=== PATIENT | female | born 1960 | race Caucasian/White ===

== ENCOUNTER 2021-06-23 16:57 | Inpatient (IN) ==
[2021-06-23] MEDS ORDERED: ACETAMINOPHEN 325 MG TAB PO PRN (18:53)
[2021-06-23] MEDS ORDERED: POLYETHYLENE (MIRALAX) 17 GM PACK PO PRN (18:53)
[2021-06-23] MEDS ORDERED: Heparin IV Adult Wt-Based Standard *NO* Bolus Protocol IV SCH (18:58)
[2021-06-23] MEDS ORDERED: HEPARIN SODIUM/DEXTROSE 25,000 UNITS/500 ML BAG IV SCH ×3 (19:15→21:30)
[2021-06-23] MEDS ORDERED: GLUCOSE 40% GEL 15 GM TUBE PO PRN (20:30)
[2021-06-23] MEDS ORDERED: DEXTROSE 50% 50 ML SYRINGE IV PRN (20:30)
[2021-06-23] MEDS ORDERED: GLUCAGON FOR INJ 1 MG VIAL IM PRN (20:30)
[2021-06-23] MEDS ORDERED: GLUCOSE 10 TABS/TUBE PO PRN (20:30)
[2021-06-23] MEDS ORDERED: CARBOHYDRATES FOR HYPOGLYCEMIA PO PRN (20:30)
[2021-06-23 20:40] LABS: Partial Thromboplastin Ratio 2.4; Prothrombin Time 9.8 Seconds (9.0-12.0)
[2021-06-23 20:41] LABS: Partial Thromboplastin Time 61.9 Seconds (21.0-31.0)
[2021-06-23] MEDS ORDERED: INSULIN ASPART 100 UNITS/ML 3 ML PEN SC SCH (21:00)
[2021-06-23] MEDS ORDERED: Heparin IV Adult Wt-Based Standard *NO* Bolus Protocol ONE (21:07)
--- NOTE | 2021-06-23 22:28 | History and Physical Report ---
DATE OF ADMISSION: 06/23/2021. CHIEF COMPLAINT: Non-ST elevated [place]. HISTORY OF PRESENT ILLNESS: This is a 60-year-old female with past medical history significant for type 2 diabetes, hyperlipidemia, obesity, vitamin B12 deficiency, steatosis of liver, chronic right shoulder pain, degenerative disk disease, tobacco abuse, history of lumbar spinal fusion surgery, who was transferred from [place] for cardiac cath because of non-ST elevated [place]. 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 Last Thursday, when she woke up in the evening around 7:00 p.m. and she was talking on the phone to the son around 8:00 p.m., she noticed left- sided chest pain radiating to her left shoulder and arm. It was not getting better when her son told her to go to the ER and she was in [facility] and got admitted for non-ST elevated [place]. Her EKG showed ST depression in the inferolateral leads. Her high-sensitivity troponin at presentation was 48 and peaked at 85. She was started on IV heparin, aspirin and metoprolol, and initially, she was placed on nitroglycerin paste. Currently, she is not on any nitroglycerin paste. She says yesterday she had couple of episodes of chest pain, but since today she is having no chest pain. She was somewhat nauseous earlier, but she has no nausea now. When she had chest pain, she had sweating and today she had some sweating, but no chest pain. Currently, resting comfortably and hemodynamically stable. Denies any shortness of breath. She has smoker's cough once in a while. She had a headache earlier that is gone now. No blurred visions, no earache, no runny nose, no sore throat, no nausea. Appetite is okay, no dysphagia, no abdominal pain, normal bowel and bladder movements. Denies any blood in stools or black stools. Denies any hematuria. The patient has diabetes, but she says she could not tolerate metformin in the past and she was on Prandin, but she stopped it 4 years ago because it was causing hypoglycemic episodes. She was on statin; she cannot remember exactly, it could be Lipitor or pravastatin, but it caused very bad leg cramps and she declined statins in the past and now she agrees to try to take Lipitor low dose for 3 times a week. Before all this happened, she was active. ALLERGIES: No known drug allergies. PAST MEDICAL HISTORY: As mentioned above. PAST SURGICAL HISTORY: Breast lesion excision, , endometrial thermal ablation, ligation of oviducts, removal of bilateral heel spur, removal of pilonidal cyst, bursa removal of the right thigh. MEDICATIONS: Currently, she is on heparin, aspirin, metoprolol, Lipitor. FAMILY HISTORY: Significant for uncle had [place], maternal grandfather had [place]. Sister has breast cancer. SOCIAL HISTORY: . Smokes 1 pack a day for the last 38 years. Alcohol occasional. No drug use. REVIEW OF SYSTEMS: As per HPI. Rest of review of systems is negative. PHYSICAL EXAMINATION: GENERAL: The patient is obese, not in acute distress. VITAL SIGNS: Temperature 37, pulse 75, respiratory rate 18, blood pressure 157/94, oxygen 97% on room air. HEENT: Extraocular muscles intact. No pallor. No icterus. NECK: No JVD, no neck masses. CARDIOVASCULAR: S1 and S2 heard. Regular rate and rhythm. No murmur, no gallop. RESPIRATORY SYSTEM: Normal AP diameter. No accessory muscle use. No wheezing, no crackles. ABDOMEN: Soft, bowel sounds present, nontender, no distention. CENTRAL NERVOUS SYSTEM: Cranial nerves II-XII grossly intact, nonfocal. EXTREMITIES: No edema, no erythema. LABORATORY DATA: Labs done today at [place] are lipid profile, triglycerides 75, cholesterol 184, HDL 34, LDL 135, non-HDL cholesterol 150. Sodium is 142, potassium 4.3, chloride 108, bicarbonate 26, BUN 11, creatinine 0.7, serum glucose 119, calcium 9. WBC 9.6, hemoglobin 14.7, hematocrit 46.8, platelets 305. ASSESSMENT AND PLAN: This is a 60-year-old female who was transferred from [facility] for cardiac catheterization for non-ST elevated myocardial infarction. 1. Non-ST elevated myocardial infarction: The patient presented to [facility] on Thursday with chest pain and found to have EKG changes, ST depression in the inferolateral leads and high-sensitivity troponin of 45 and peaked at 85. Started on heparin, aspirin, beta ras and transferred here for cardiac catheterization in a.m. Currently resting comfortably, currently asymptomatic. We will follow repeat EKG. We will follow repeat troponins and keep her n.p.o. after midnight. We will hold heparin at 7:00 a.m. and plan for cardiac catheterization in a.m. Cardiology consult. Continue her aspirin, beta ras and low-dose statin. 2. History of diabetes: Stopped Prandin about 4 years ago because it was causing hypoglycemic episodes. Recent Hb1Ac seemed to be 7; we will follow repeat Hb1Ac, place her on insulin sliding scale, follow the blood sugars. 3. Hyperlipidemia: Continue low-dose statin; hopefully, the patient tolerates it. 4. Hypertension: Started on metoprolol. We will monitor the blood pressure. 5. History of vitamin B12 deficiency: We will check laboratories. 6. Tobacco abuse: Needs counseling. She says she is going to quit smoking. 7. Obesity: Needs counseling. 8. Deep venous thrombosis prophylaxis: On IV heparin. DISPOSITION: Monitor in the tele floor. PT, OT prior to discharge. Social service to help with discharge planning. Job ID: [id number] KIKO
[2021-06-23] MEDS ORDERED: Nursing to Pharmacy Communication SCH (23:15)
[2021-06-24] MEDS: INSULIN ASPART 100 UNITS/ML 3 ML PEN SC SCH ×5 (00:12→20:57)
[2021-06-24 03:51] LABS: Partial Thromboplastin Time 53.3 Seconds (21.0-31.0)
[2021-06-24 05:36] LABS: Basophils # (auto) 0.04 K/uL (0-0.2); Basophils % (auto) 0.4 %; Eosinophils # (auto) 0.42 K/uL (0-0.5); Hematocrit (blood only) 45.3 % (37-47); Immature Granulocytes # (auto) 0.07 K/uL (0.00-0.02); Immature Granulocytes % (auto) 0.7 %; Lymphocytes # (auto) 3.37 K/uL (1.2-3.4); Lymphocytes % (auto) 32.2 %; Mean Corpuscular Hemoglobin 29.6 pg (25-34); Mean Corpuscular Hgb Conc 33.1 g/dL (32-36); Mean Corpuscular Volume 89.3 fL (80-100); Mean Platelet Volume 9.8 fL (7.4-10.4); Monocytes # (auto) 0.67 K/uL (0.11-0.59); Monocytes % (auto) 6.4 %; Neutrophils # (auto) 5.88 K/uL (1.4-6.5); Neutrophils % (auto) 56.3 %; Platelet Count 268 K/uL (130-400); RDW Coefficient of Variation 14.6 % (11.5-14.5); RDW Standard Deviation 47.9 fL (36.4-46.3); Red Blood Count 5.07 M/uL (4.2-5.4); White Blood Count 10.45 K/uL (4.8-10.8)
[2021-06-24 06:07] LABS: BUN Creatinine Ratio 22.1 (10-20); Calcium 8.9 mg/dl (8.5-10.1); Creatinine Clr Calc Pharmacy 82.4 ml/min; Est GFR (African American) 106.2 ml/min; Est GFR (Non-African American) 91.7 ml/min; Magnesium 2.2 mg/dl (1.8-2.4)
[2021-06-24 06:27] LABS: Troponin I 0.124 ng/ml (0-0.045)
[2021-06-24] MEDS ORDERED: STOP HEPARIN DRIP ORDER ONE (07:00)
[2021-06-24] MEDS ORDERED: HEPARIN SODIUM/DEXTROSE 25,000 UNITS/500 ML BAG IV SCH (07:00)
--- NOTE | 2021-06-24 07:28 | Hospitalist Progress Note ---
Date of Service June 24, 2021 Assessment & Plan (1) NSTEMI (non-ST elevated myocardial infarction): (2) Hyperlipidemia: (3) Diabetes mellitus type 2 in nonobese: Plan: This is a 60-year-old female who was transferred from [facility] for cardiac catheterization for non-ST elevated myocardial infarction. 1. Non-ST elevated myocardial infarction: The patient presented to [facility] on Thursday with chest pain and found to have EKG changes, ST depression in the inferolateral leads and high- sensitivity troponin of 45 and peaked at 85. Started on heparin, aspirin, beta ras and transferred here for cardiac catheterization in a.m. Currently resting comfortably, currently asymptomatic. We will follow repeat EKG. We will follow repeat troponins and keep her n.p.o. after midnight. Stopped IV heparin at 7:00 a.m. today. Plan for cardiac catheterization later today. Cardiology consulted. Continue her aspirin, beta ras and low-dose statin. 2. History of diabetes: Stopped Prandin about 4 years ago because it was causing hypoglycemic episodes. Recent Hb1Ac seemed to be 7; we will follow repeat Hb1Ac, place her on insulin sliding scale, follow the blood sugars. 3. Hyperlipidemia: Continue low-dose statin; hopefully, the patient tolerates it. 4. Hypertension: Started on metoprolol. We will monitor the blood pressure. 5. History of vitamin B12 deficiency: We will check laboratories. 6. Tobacco abuse: Needs counseling. She says she is going to quit smoking. 7. Obesity: Needs counseling. DVT prophylaxis: On IV heparin.(stopped this AM) DISPOSITION: Plan to discharge home once medically stable. Admission and Anticipated Discharge Date Admission Date: June 23, 2021 Subjective Patient seen in follow-up of NSTEMI She was transferred from [facility] for need of cardiac cath she is currently sitting up in the bed, in no acute distress, conversing easily, pleasant in no acute distress Currently denies any chest pain or shortness of breath Denies any dizziness or lightheadedness Review of Systems Constitutional: no fever and no chills Respiratory: no cough and no dyspnea Cardiovascular: no chest pain and no palpitations Gastrointestinal: no abdominal pain, no nausea and no vomiting Physical Exam Physical Exam: GENERAL: obese F, not in acute distress. HEENT: NC/AT, Extraocular muscles intact. No pallor. No icterus. NECK: No JVD, no neck masses. CARDIOVASCULAR: S1 and S2 heard. Regular rate and rhythm. No murmur, no gallop. RESPIRATORY: Normal AP diameter. No accessory muscle use. No wheezing, no crackles. ABDOMEN: Soft, bowel sounds present, nontender, no distention. NEURO: Alert oriented x3, no facial asymmetry, speech fluent, moves extremities EXTREMITIES: No edema, no erythema. Results & Data Results & Data ([facility]) Vital Signs (Past 12 Hours) Vital Signs Temp Pulse Resp BP Pulse Ox 06/24/21 03:25 36.8 C 67 18 141/83 H 95 06/23/21 23:19 36.9 C 67 18 154/76 H 95 Laboratory Results 06/24/21 06/24/21 06/24/21 Range/Units 05:53 05:21 05:21 WBC (4.8-10.8) K/uL RBC (4.2-5.4) M/uL Hgb (12.0-16.0) g/dL Hct (37-47) % MCV (80-100) fL MCH (25-34) pg MCHC (32-36) g/dL RDW Std Deviation (36.4-46.3) fL RDW Coeff of Allan (11.5-14.5) % Plt Count (130-400) K/uL MPV (7.4-10.4) fL Immature Gran % (Auto) % Neut % (Auto) % Lymph % (Auto) % [place] % (Auto) % Eos % (Auto) % Baso % (Auto) % Neut # (Auto) (1.4-6.5) K/uL Lymph # (Auto) (1.2-3.4) K/uL [place] # (Auto) (0.11-0.59) K/uL Eos # (Auto) (0-0.5) K/uL Baso # (Auto) (0-0.2) K/uL Immature Gran # (Auto) (0.00-0.02) K/uL PT (9.0-12.0) Seconds INR (0.9-1.1) APTT (21.0-31.0) Seconds PTT Ratio Sodium (136-145) mmol/L Potassium (3.5-5.1) mmol/L Chloride (98-107) mmol/L Carbon Dioxide (21-32) mmol/L Anion Gap (3-11) BUN (7-18) mg/dl Creatinine (0.6-1.2) mg/dl Est Cr Clr Drug Dosing ml/min Est GFR ( Amer) ml/min Est GFR (Non-Af Amer) ml/min BUN/Creatinine Ratio (10-20) Glucose (70-99) mg/dl POC Glucose 112 H (70-99) mg/dl Estimat Average Glucose Pending Hemoglobin A1c Pending Calcium (8.5-10.1) mg/dl Magnesium (1.8-2.4) mg/dl Troponin I (0-0.045) ng/ml Vitamin B12 274 (193-986) pg/ml 06/24/21 06/24/21 06/24/21 Range/Units 05:21 05:21 03:05 WBC 10.45 (4.8-10.8) K/uL RBC 5.07 (4.2-5.4) M/uL Hgb 15.0 (12.0-16.0) g/dL Hct 45.3 (37-47) % MCV 89.3 (80-100) fL MCH 29.6 (25-34) pg MCHC 33.1 (32-36) g/dL RDW Std Deviation 47.9 H (36.4-46.3) fL RDW Coeff of Allan 14.6 H (11.5-14.5) % Plt Count 268 (130-400) K/uL MPV 9.8 (7.4-10.4) fL Immature Gran % (Auto) 0.7 % Neut % (Auto) 56.3 % Lymph % (Auto) 32.2 % [place] % (Auto) 6.4 % Eos % (Auto) 4.0 % Baso % (Auto) 0.4 % Neut # (Auto) 5.88 (1.4-6.5) K/uL Lymph # (Auto) 3.37 (1.2-3.4) K/uL [place] # (Auto) 0.67 H (0.11-0.59) K/uL Eos # (Auto) 0.42 (0-0.5) K/uL Baso # (Auto) 0.04 (0-0.2) K/uL Immature Gran # (Auto) 0.07 H (0.00-0.02) K/uL PT (9.0-12.0) Seconds INR (0.9-1.1) APTT 53.3 H* (21.0-31.0) Seconds PTT Ratio 2.0 Sodium 138 (136-145) mmol/L Potassium 4.0 (3.5-5.1) mmol/L Chloride 107 (98-107) mmol/L Carbon Dioxide 27 (21-32) mmol/L Anion Gap 4.0 (3-11) BUN 16 (7-18) mg/dl Creatinine 0.72 (0.6-1.2) mg/dl Est Cr Clr Drug Dosing 82.4 ml/min Est GFR ( Amer) 106.2 ml/min Est GFR (Non-Af Amer) 91.7 ml/min BUN/Creatinine Ratio 22.1 H (10-20) Glucose 121 H (70-99) mg/dl POC Glucose (70-99) mg/dl Estimat Average Glucose Hemoglobin A1c Calcium 8.9 (8.5-10.1) mg/dl Magnesium 2.2 (1.8-2.4) mg/dl Troponin I 0.124 H* (0-0.045) ng/ml Vitamin B12 (193-986) pg/ml 06/24/21 06/23/21 06/23/21 Range/Units 00:03 20:57 20:13 WBC (4.8-10.8) K/uL RBC (4.2-5.4) M/uL Hgb (12.0-16.0) g/dL Hct (37-47) % MCV (80-100) fL MCH (25-34) pg MCHC (32-36) g/dL RDW Std Deviation (36.4-46.3) fL RDW Coeff of Allan (11.5-14.5) % Plt Count (130-400) K/uL MPV (7.4-10.4) fL Immature Gran % (Auto) % Neut % (Auto) % Lymph % (Auto) % [place] % (Auto) % Eos % (Auto) % Baso % (Auto) % Neut # (Auto) (1.4-6.5) K/uL Lymph # (Auto) (1.2-3.4) K/uL [place] # (Auto) (0.11-0.59) K/uL Eos # (Auto) (0-0.5) K/uL Baso # (Auto) (0-0.2) K/uL Immature Gran # (Auto) (0.00-0.02) K/uL PT (9.0-12.0) Seconds INR (0.9-1.1) APTT (21.0-31.0) Seconds PTT Ratio Sodium (136-145) mmol/L Potassium (3.5-5.1) mmol/L Chloride (98-107) mmol/L Carbon Dioxide (21-32) mmol/L Anion Gap (3-11) BUN (7-18) mg/dl Creatinine (0.6-1.2) mg/dl Est Cr Clr Drug Dosing ml/min Est GFR ( Amer) ml/min Est GFR (Non-Af Amer) ml/min BUN/Creatinine Ratio (10-20) Glucose (70-99) mg/dl POC Glucose 127 H 117 H (70-99) mg/dl Estimat Average Glucose Hemoglobin A1c Calcium (8.5-10.1) mg/dl Magnesium (1.8-2.4) mg/dl Troponin I 0.167 H* (0-0.045) ng/ml Vitamin B12 (193-986) pg/ml 06/23/21 Range/Units 20:09 WBC (4.8-10.8) K/uL RBC (4.2-5.4) M/uL Hgb (12.0-16.0) g/dL Hct (37-47) % MCV (80-100) fL MCH (25-34) pg MCHC (32-36) g/dL RDW Std Deviation (36.4-46.3) fL RDW Coeff of Allan (11.5-14.5) % Plt Count (130-400) K/uL MPV (7.4-10.4) fL Immature Gran % (Auto) % Neut % (Auto) % Lymph % (Auto) % [place] % (Auto) % Eos % (Auto) % Baso % (Auto) % Neut # (Auto) (1.4-6.5) K/uL Lymph # (Auto) (1.2-3.4) K/uL [place] # (Auto) (0.11-0.59) K/uL Eos # (Auto) (0-0.5) K/uL Baso # (Auto) (0-0.2) K/uL Immature Gran # (Auto) (0.00-0.02) K/uL PT 9.8 (9.0-12.0) Seconds INR 1.0 (0.9-1.1) APTT 61.9 H* (21.0-31.0) Seconds PTT Ratio 2.4 Sodium (136-145) mmol/L Potassium (3.5-5.1) mmol/L Chloride (98-107) mmol/L Carbon Dioxide (21-32) mmol/L Anion Gap (3-11) BUN (7-18) mg/dl Creatinine (0.6-1.2) mg/dl Est Cr Clr Drug Dosing ml/min Est GFR ( Amer) ml/min Est GFR (Non-Af Amer) ml/min BUN/Creatinine Ratio (10-20) Glucose (70-99) mg/dl POC Glucose (70-99) mg/dl Estimat Average Glucose Hemoglobin A1c Calcium (8.5-10.1) mg/dl Magnesium (1.8-2.4) mg/dl Troponin I (0-0.045) ng/ml Vitamin B12 (193-986) pg/ml Medications Administered Current Inpatient Medications Acetaminophen (Acetaminophen 325 Mg Tab) 650 mg PO Q4H PRN PRN Reason: Pain or Fever Stop: 07/23/21 18:52 Aspirin (Aspirin 81 Mg Ectab) 81 mg PO QAM [facility] Stop: 07/24/21 08:59 Atorvastatin Calcium (Atorvastatin 20 Mg Tab) 20 mg PO QAM [facility] Stop: 07/24/21 08:59 Dextrose (Dextrose 50% 50 Ml Syringe) 25 - 50 ml IV UD PRN; Protocol PRN Reason: Hypoglycemia Protocol Stop: 07/23/21 20:29 Glucagon (Glucagon For Inj 1 Mg Vial) 1 mg IM UD PRN; Protocol PRN Reason: Hypoglycemia Protocol Stop: 07/23/21 20:29 Glucose (Glucose 40% Gel 15 Gm Tube) 15 - 30 gm PO UD PRN; Protocol PRN Reason: Hypoglycemia Protocol Stop: 07/23/21 20:29 Glucose (Glucose 10 Tabs/Tube) 4 - 8 tabs PO UD PRN; Protocol PRN Reason: Hypoglycemia Protocol Stop: 07/23/21 20:29 Insulin Aspart (Insulin Aspart 100 Units/Ml 3 Ml Pen) 0 units SC Q6 [facility] Stop: 07/23/21 20:59 Last Admin: 06/24/21 06:04 Dose: Not Given Documented by: Metoprolol Succinate (Metoprolol Succ 25mg Ext Rel Tab) 25 mg PO QAM [facility] Stop: 07/24/21 08:59 Miscellaneous (Carbohydrates For Hypoglycemia ) 15 - 30 gm PO UD PRN PRN Reason: Hypoglycemia Treatment Stop: 07/23/21 20:29 Polyethylene Glycol (Polyethylene (Miralax) 17 Gm Pack) 17 gm PO DAILY PRN PRN Reason: Constipation Stop: 07/23/21 18:52
[2021-06-24 07:41] LABS: Estimated Average Glucose 157 mg/dl; Hemoglobin A1C 7.1 % (4.5-5.6)
[2021-06-24] MEDS: ASPIRIN 81 MG ECTAB PO SCH (08:03)
[2021-06-24] MEDS: METOPROLOL SUCC 25MG EXT REL TAB PO SCH (08:04)
[2021-06-24] MEDS: ATORVASTATIN 20 MG TAB PO SCH (08:04)
--- NOTE | 2021-06-24 09:16 | Electrocardiogram Report ---
Test Reason : Blood Pressure : / mmHG Vent. Rate : 069 BPM Atrial Rate : 069 BPM P-R Int : 168 ms QRS Dur : 082 ms QT Int : 400 ms P-R-T Axes : 041 006 077 degrees QTc Int : 428 ms Normal sinus rhythm T-wave inversion in Septal leads , consider ischemia Abnormal ECG No previous ECGs available Confirmed by Mian Zepeda ([id number]) on 06/24/2021 9:16:12 AM Referred By: Nghia Yañez Confirmed By:Mian Zepeda
--- NOTE | 2021-06-24 09:30 | Electrocardiogram Report ---
Test Reason : Blood Pressure : / mmHG Vent. Rate : 066 BPM Atrial Rate : 066 BPM P-R Int : 174 ms QRS Dur : 080 ms QT Int : 408 ms P-R-T Axes : 049 015 076 degrees QTc Int : 427 ms Normal sinus rhythm Possible Old Septal infarct Nonspecific T wave abnormality Septal leads Abnormal ECG When compared with ECG of 23-JUN-2021 21:16, No significant change Confirmed by Mian Zepeda ([id number]) on 06/24/2021 9:29:49 AM Referred By: Nghia Yañez Confirmed By:Mian Zepeda
--- NOTE | 2021-06-24 10:51 | Cardiology Consultation ---
Date of Consultation June 24, 2021 Assessment & Plan (1) NSTEMI (non-ST elevated myocardial infarction): 60-year-old female referred for diagnostic cardiac catheterization after presenting with rest chest and left arm pain, elevated troponin consistent with non-ST segment elevation myocardial infarction. She has been n.p.o. after midnight. Procedure and risks have been explained in detail with the patient including risks of myocardial infarction stroke, bleeding, dye reaction, renal, or vascular injury. Additional risks of coronary intervention/stenting also discussed if indicated. Included increased risk of myocardial infarction and need for urgent coronary bypass grafting. Additional risks of sedation also discussed Patient tentatively planned for procedure today (2) Hyperlipidemia: (3) Diabetes mellitus type 2 in nonobese: History of Present Illness Reason for Consultation: Chest pain at rest Requesting Physician: Dr. juárez Attending Physician: Nghia Yañez MD History of Present Illness Patient is a 60-year-old female transferred from [facility] after presentation with rest chest pain, elevated troponin. She carries cardiovascular risk factors of type 2 diabetes mellitus, familial history of coronary artery disease, dyslipidemia but no prior history of structural heart disease, angina or congestive heart failure. On initial presentation on 06/21/2021 patient was in sinus tachycardia with ST depression in inferolateral leads with patient complaining of pain having developed at rest radiating to left arm and shoulder Patient is currently asymptomatic. Past surgical history notable for breast biopsy, , tubal ligation, pilonidal cyst repair, right knee bursa ectomy No complications with prior anesthesia. No history of dye allergy No bleeding difficulties no planned upcoming surgeries Patient has received aspirin, beta-ras and IV heparin Echocardiogram this morning with preserved LV systolic function and no significant valvular disease Allergies Allergy/AdvReac Type Severity Reaction Status Date / Time No Known Allergies Allergy Unverified 11/17/13 12:56 Home Medications Medication Instructions Recorded Confirmed Type CALCIUM CARBONATE-VITAMIN D DAILY #0 11/17/13 History (CALCIUM + D) CLONAZEPAM (KLONOPIN) 0.5 mg PO #0 tab 11/17/13 History Ergocalciferol (Vitamin D Cap) 50,000 inter.unit PO WK #0 cap 11/17/13 History Repaglinide (Prandin) 0.5 mg PO QAM #0 tab 11/17/13 History vitamin b 1 SUBLINGUAL #0 11/17/13 History Patient History Social History Smoking Status: Current every day smoker Cigarettes Per Day: 1; Hx Alcohol Use: No Hx Substance Use: No Preferred Language: Ukrainian Communication Ability: Effective Early Childhood Services Coordinator Required: No Beliefs That Will Affect Care: None Current Living Situation: Spouse Other Information That Helps Us Care for You: No Feels Safe at Home: Yes Safety Concerns: Feels Safe At This Time Assistive Devices: None Review of Systems Review of Systems: All systems reviewed & are unremarkable except as noted in HPI & below Physical Exam Constitutional: WD/WN, vitals as above Eyes: PERRL, conjunctivae normal, anicteric sclerae ENMT: external ear and nose normal, oropharynx normal Neck: trachea midline, no thyromegaly Respiratory: normal respiratory effort, lungs clear to auscultation Cardiovascular: Rate/Rhythm: regular rate and regular rhythm Heart Sounds: normal S1 and normal S2; no gallop and no murmur Palpation: normal PMI Vessels: normal carotid upstroke and radial pulses present; no JVD and no carot id bruit Extremities: no edema Gastrointestinal (Abdomen): normal bowel sounds, soft, nontender, no hepatosplenomegaly Musculoskeletal: no cyanosis or clubbing, extremities motor strength 5/5 Skin: no rashes, warm and dry Neurologic: PERRL, EOMI, accommodation nl, no face palsy, no dysarthria Psychiatric: A+Ox3, euthymic affect Results & Data ([facility]) Vital Signs (Past 12 Hours) Vital Signs Temp Pulse Pulse Resp BP Pulse Ox 06/24/21 08:13 36.9 C 69 18 145/94 H 97 06/24/21 08:00 70 06/24/21 03:25 36.8 C 67 18 141/83 H 95 06/23/21 23:19 36.9 C 67 18 154/76 H 95 Laboratory Results Laboratory Results - last 24 hr 06/23/21 06/23/21 06/23/21 20:09 20:13 20:57 WBC RBC Hgb Hct MCV MCH MCHC RDW Std Deviation RDW Coeff of Allan Plt Count MPV Immature Gran % (Auto) Neut % (Auto) Lymph % (Auto) [place] % (Auto) Eos % (Auto) Baso % (Auto) Neut # (Auto) Lymph # (Auto) [place] # (Auto) Eos # (Auto) Baso # (Auto) Immature Gran # (Auto) PT 9.8 INR 1.0 APTT 61.9 H* PTT Ratio 2.4 Sodium Potassium Chloride Carbon Dioxide Anion Gap BUN Creatinine Est Cr Clr Drug Dosing Est GFR ( Amer) Est GFR (Non-Af Amer) BUN/Creatinine Ratio Glucose POC Glucose 117 H Estimat Average Glucose Hemoglobin A1c Calcium Magnesium Troponin I 0.167 H* Vitamin B12 06/24/21 06/24/21 06/24/21 00:03 03:05 05:21 WBC 10.45 RBC 5.07 Hgb 15.0 Hct 45.3 MCV 89.3 MCH 29.6 MCHC 33.1 RDW Std Deviation 47.9 H RDW Coeff of Allan 14.6 H Plt Count 268 MPV 9.8 Immature Gran % (Auto) 0.7 Neut % (Auto) 56.3 Lymph % (Auto) 32.2 [place] % (Auto) 6.4 Eos % (Auto) 4.0 Baso % (Auto) 0.4 Neut # (Auto) 5.88 Lymph # (Auto) 3.37 [place] # (Auto) 0.67 H Eos # (Auto) 0.42 Baso # (Auto) 0.04 Immature Gran # (Auto) 0.07 H PT INR APTT 53.3 H* PTT Ratio 2.0 Sodium Potassium Chloride Carbon Dioxide Anion Gap BUN Creatinine Est Cr Clr Drug Dosing Est GFR ( Amer) Est GFR (Non-Af Amer) BUN/Creatinine Ratio Glucose POC Glucose 127 H Estimat Average Glucose Hemoglobin A1c Calcium Magnesium Troponin I Vitamin B12 06/24/21 06/24/21 06/24/21 05:21 05:21 05:21 WBC RBC Hgb Hct MCV MCH MCHC RDW Std Deviation RDW Coeff of Allan Plt Count MPV Immature Gran % (Auto) Neut % (Auto) Lymph % (Auto) [place] % (Auto) Eos % (Auto) Baso % (Auto) Neut # (Auto) Lymph # (Auto) [place] # (Auto) Eos # (Auto) Baso # (Auto) Immature Gran # (Auto) PT INR APTT PTT Ratio Sodium 138 Potassium 4.0 Chloride 107 Carbon Dioxide 27 Anion Gap 4.0 BUN 16 Creatinine 0.72 Est Cr Clr Drug Dosing 82.4 Est GFR ( Amer) 106.2 Est GFR (Non-Af Amer) 91.7 BUN/Creatinine Ratio 22.1 H Glucose 121 H POC Glucose Estimat Average Glucose 157 Hemoglobin A1c 7.1 H Calcium 8.9 Magnesium 2.2 Troponin I 0.124 H* Vitamin B12 274 06/24/21 05:53 WBC RBC Hgb Hct MCV MCH MCHC RDW Std Deviation RDW Coeff of Allan Plt Count MPV Immature Gran % (Auto) Neut % (Auto) Lymph % (Auto) [place] % (Auto) Eos % (Auto) Baso % (Auto) Neut # (Auto) Lymph # (Auto) [place] # (Auto) Eos # (Auto) Baso # (Auto) Immature Gran # (Auto) PT INR APTT PTT Ratio Sodium Potassium Chloride Carbon Dioxide Anion Gap BUN Creatinine Est Cr Clr Drug Dosing Est GFR ( Amer) Est GFR (Non-Af Amer) BUN/Creatinine Ratio Glucose POC Glucose 112 H Estimat Average Glucose Hemoglobin A1c Calcium Magnesium Troponin I Vitamin B12
[2021-06-24] MEDS ORDERED: SODIUM CHLORIDE 0.9% 1000ML 1,000 ML IV SCH (11:00)
[2021-06-24] MEDS ORDERED: NITROGLYCERIN/D5W 100MCG/ML 20ML SYR ONE (13:13)
[2021-06-24] MEDS ORDERED: MIDAZOLAM HCL 1 MG/ML 2ML VIAL ONE ×2 (13:13→13:52)
[2021-06-24] MEDS ORDERED: fentaNYL citrate 100 MCG/2 ML VIAL ONE (13:13)
[2021-06-24] MEDS ORDERED: niCARdipine HCL INJ 2.5 MG/ML 10 ML AMP ONE (13:13)
[2021-06-24] MEDS ORDERED: HEPARIN (PORCINE) 1000 UNIT/ML 10 ML (CATH LAB USE ONLY) ONE (13:13)
--- NOTE | 2021-06-24 13:33 | Pre Anesthesia Assessment ---
Date of Service June 24, 2021 Pre Sedation Assessment Vital Signs Temp Pulse Pulse Resp BP Pulse Ox 06/24/21 12:28 36.9 C 67 20 148/80 H 96 06/24/21 08:13 36.9 C 69 18 145/94 H 97 06/24/21 08:00 70 06/24/21 03:25 36.8 C 67 18 141/83 H 95 06/23/21 23:19 36.9 C 67 18 154/76 H 95 06/23/21 19:09 37.0 C 75 18 157/94 H 97 Cardiovascular RRR, no murmur, no edema Respiratory normal respiratory effort, lungs clear to auscultation Pre-Sedation Airway Assessment Smoking Status: Current every day smoker Short, Thick Neck: No Thyromental Distance: > or= 3.5 Finger Breadths Oral Cavity: + WNL Mallampati Class: III Class III ASA: ASA3 NPO Status Date of Last Intake of Fluids: 06/23/21 Date of Last Intake of Solid Food: 06/23/21 Procedure Planning Contraindications for Sedation: none Current Medications Reviewed: Yes Notes The planned sedation has been discussed with the patient. Informed Consent was obtained. I have identified the patient, determined the appropriateness of sedation and have assessed the patient immediately prior to the procedure. All medicine(s) and interventions are by my order.
--- NOTE | 2021-06-24 14:01 | Cardiac Catheterization ---
Cardiac Cath Procedure Brief Procedure Date June 24, 2021 Pre-Procedure Diagnosis Pre-Procedure Diagnosis: Non STEMI AUC Score AUC Score: 9 Post-Procedure Diagnosis Post-Procedure Diagnosis: Severe CAD (Ulcerated mid LAD) Office Correspondent Oleg Gonzalez MD Orthopedic Podiatrist(s) Sri Grover Estimated Blood Loss Estimated Blood Loss: <15cc Medication(s) Medication(s): Fentanyl (12.5 mcg IV x2), Heparin (2500 units IV), Lidocaine 1% (Local infiltration access site), Nicardipine (250 mcg intra-arterial after arterial sheath insertion) and Versed (1 mg IV x 2) Preliminary Findings Impression: Ulcerated mid left anterior descending stenosis of 90% as culprit lesion Coronary angiography: Right dominant coronary anatomy Left main: Very short giving rise to left anterior descending and left circumflex. No disease in left main Left anterior descending: Type II vessel with moderate diffuse luminal irregularities throughout. It gives rise to a septal branch and a small trifurcating diagonal branch at the end of its proximal third. It gives rise to a tiny additional second diagonal branch in its midportion and courses to terminate at the apex. Within the left anterior descending there is a discrete ulcerated 90% stenosis just proximal to the septal branch. The proximal vessel has moderate irregularities in the distal apical vessel is thin in caliber. Left circumflex: Large but nondominant. It gives rise to a high marginal branch and a very large bifurcating obtuse marginal branch. There are minimal luminal irregularities in the left circumflex Right coronary artery: Dominant distribution. It gives rise to a sinoatrial branch in its proximal third, a right ventricular branch in its midportion, a small acute marginal branch, and at the AV groove a long posterior descending artery and along the AV groove 3 small posterior ventricular branches within the right coronary artery there is a smooth 50 to 60% narrowing at the end of its proximal third. LV angiography: Not performed Hemodynamics: LV pressure 156/0/17, no transaortic valve gradient Catheters used: 6 Norwegian long glide radial sheath, 5 Norwegian [place], 5 Norwegian stra ight pigtail Recommendations Recommendations: PCI without planned CABG Specimens Specimens: None Fluids (cc crystalloids) Fluids (cc crystalloids): 75 Anesthesia Start time: 1335, stop time: 1353 Procedural Complication(s) None
--- NOTE | 2021-06-24 14:13 | Cardiac Catheterization ---
Cardiac Cath Procedure Full Procedure Date June 24, 2021 Pre-Procedure Diagnosis Pre-Procedure Diagnosis: Non STEMI AUC Score AUC Score: 9 Post-Procedure Diagnosis Post-Procedure Diagnosis: Severe CAD (Ulcerated mid LAD) Procedure(s) Performed Procedure(s) Performed: Coronary Angiography and Left Heart Cath Cashier Checker Oleg Gonzalez MD Bag Shaker(s) Sri Grover Estimated Blood Loss Estimated Blood Loss: <15cc Medication(s) Medication(s): Fentanyl (12.5 mcg IV x2), Heparin (2500 units IV), Lidocaine 1% (Local infiltration access site), Nicardipine (250 mcg intra-arterial after arterial sheath insertion) and Versed (1 mg IV x 2) Summary of Findings Impression: Ulcerated mid left anterior descending stenosis of 90% as culprit lesion Coronary angiography: Right dominant coronary anatomy Left main: Very short giving rise to left anterior descending and left circumflex. No disease in left main Left anterior descending: Type II vessel with moderate diffuse luminal irregularities throughout. It gives rise to a septal branch and a small trifurcating diagonal branch at the end of its proximal third. It gives rise to a tiny additional second diagonal branch in its midportion and courses to terminate at the apex. Within the left anterior descending there is a discrete ulcerated 90% stenosis just proximal to the septal branch. The proximal vessel has moderate irregularities in the distal apical vessel is thin in caliber. Left circumflex: Large but nondominant. It gives rise to a high marginal branch and a very large bifurcating obtuse marginal branch. There are minimal luminal irregularities in the left circumflex Right coronary artery: Dominant distribution. It gives rise to a sinoatrial branch in its proximal third, a right ventricular branch in its midportion, a small acute marginal branch, and at the AV groove a long posterior descending artery and along the AV groove 3 small posterior ventricular branches within the right coronary artery there is a smooth 50 to 60% narrowing at the end of its proximal third. LV angiography: Not performed Hemodynamics: LV pressure 156/0/17, no transaortic valve gradient Catheters used: 6 Omani long glide radial sheath, 5 Omani [place], 5 Omani straight pigtail Hemodynamics Rest Ao:: 154/74/95 Final Ao: 168/72/108 LV: 156/0/17 Recommendations Recommendations: PCI without planned CABG Specimens Specimens: None Radiation Exposure (mGy) 437 Contrast (mls) 50 cc Visipaque Fluids (cc crystalloids) Fluids (cc crystalloids): 75 Anesthesia Start time: 1335, stop time: 1353 Procedural Complication(s) None I attest to the content of the Intraoperative Record and any orders documented therein. Any exceptions are noted below. 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 CAD Presenation: Non STEMI Heart Failure: No Cardiogenic Shock within 24 Hours: No Cardiac Arrest within 24 Hours: No Imaging Studies Past 6 Months: Yes Stress Studies Past 6 Months: No Standard Exercise Test: No Stress Echocardiogram: No Stress Testing w/SPECT MPI: No Cardiac CTA: No STEMI OR Non-STEMI Symptom Onset Date: 06/21/21 Symptom Onset Time: 20:00 Thrombolytics: No Coronary Anatomy Dominant: Right Left Main (% Stenosis): Normal LAD (% Stenosis): Proximal (Ulcerated 90%) and Distal (Thin apical segment) D1 (% Stenosis): Normal D2 (% Stenosis): Normal Circumflex (% Stenosis): Mid (Mild irregularities) OM1 (% Stenosis): Normal OM2 (% Stenosis): Normal (Large bifurcating vessel) RCA (% Stenosis): Mid (50-60) R PDA (% Stenosis): Mid (Mild irregularities) R PL1 (% Stenosis): Normal Left Ventricular Angiography EF (%): N/A Diagnostic Physicians Name: Oleg Gonzalez MD Closure Device Recommendations: PCI without planned CABG
[2021-06-24] MEDS ORDERED: CLOPIDOGREL BISULFATE 300 MG TAB ONE (14:33)
--- NOTE | 2021-06-24 14:48 | Cardiac Catheterization ---
[facility] Data: Endocrinology Specialist Cardiac Status Clinical evaluation leading to the procedure CAD Presenation: Non STEMI Anginal Classification: CCS IV Heart Failure: No Cardiogenic Shock within 24 Hours: No Cardiac Arrest within 24 Hours: No Imaging Studies Past 6 Months: Yes Stress Studies Past 6 Months: No Diagnostic Physicians Name: Angel Lucia MD Status: Elective Closure Device Percutaneous Entry Location: Radial Closure Device: Radial Band Recommendations: PCI without planned CABG PCI Indication: PCI for high risk Non-TERRIE Lesion Segment Name: proximal LAD Culprit Artery: Yes Stenosis Prior to Rx (%): 90 Chronic Total Occlusion: No IVUS: Yes FFR: No Pre-Procedure SANDY Flow: 3 Previously Treated Lesion: No Lesion Complexity: Non-High/Non-C Lesion Length (mm): 20 Thrombus Present: Yes Bifurcation Lesion: No Guidewire Across Lesion: Stenosis Post-Procedure (%): 0 Post-Procedure SANDY Flow: 3 Devices(s) Deployed: Yes Yes Intraprocedure Events Significant Disection: No Perforation: No Cardiac Cath Procedure Full Procedure Date June 24, 2021 Pre-Procedure Diagnosis Pre-Procedure Diagnosis: Non STEMI AUC Score AUC Score: 8 Post-Procedure Diagnosis Post-Procedure Diagnosis: Severe CAD (Ulcerated mid LAD) and Successful PCI Procedure(s) Performed Procedure(s) Performed: Coronary Angiography, Drug Eluting Stent and IVUS Attic Blower Angel Lucia MD Shoe Maker(s) Deibler Estimated Blood Loss Estimated Blood Loss: 15 Medication(s) Medication(s): Clopidogrel, Fentanyl (12.5 mcg IV x2), Heparin (2500 units IV), Nicardipine (250 mcg intra-arterial after arterial sheath insertion), Nitroglycerin and Versed (1 mg IV x 2) Summary of Findings Indication: NSTEMI Access: 6 Fr right radial artery Catheters: EBU 3.5 guide Findings: For full details of patient's coronary angiography please see cath report di ctated by Dr. Gonzalez. Briefly, patient found to have severe single vessel disease with a 90% acute proximal LAD stenosis. Decision to proceed with PCI. -- PCI -- Antithrombotic therapy: Heparin, clopidogrel Procedure: Left main cannulated with EBU 3.5 guide Prowater wire passed across lesion into distal vessel Corona IVUS catheter placed into mid LAD. Pullback revealed mild mid segment disease with proximal LAD mildly calcified plaque with acute thrombus. Mild to moderate disease extended back near ostium. Left main without significant disease Proximal LAD lesion stented with 2.75 x 26 mm Macario drug-eluting stent ending just before takeoff of D1. Stent post-dilated with 3.5 noncompliant balloon IC vasodilators administered for spasm Post procedure SANDY 3 flow, stent well expanded with minimal residual stenosis and no apparent cardiac complications. Arterial Closure: TR band Summary: 1. Successful PCI of proximal LAD with single drug-eluting stent (2.75 x 26 mm Macario; postdilated with 3.5 NC). Recommendations: To PCU for continued monitoring Loaded with clopidogrel 600 mg in Endocrinology Specialist Continue dual-antiplatelet therapy for at least 1 year Consult cardiac Rehab Hemodynamics Rest Ao:: 143/76/102 Final Ao: 136/65/92 LV: Recommendations Recommendations: PCI without planned CABG Specimens Specimens: None Radiation Exposure (mGy) 1111 Contrast (mls) 45 Fluids (cc crystalloids) Fluids (cc crystalloids): 100 Drains Drains: none Anesthesia Start time: 1355, stop time: 1428 Procedural Complication(s) None Disposition PCU I attest to the content of the Intraoperative Record and any orders documented therein. Any exceptions are noted below. [facility] Card Cath Procedure Codes Therapeutic Services & Ancillary Proc Procedure 1: Cardiovascular Tx and Anc Procedures: 21391 IV Ultrasound (Coronary or Graft) Moderate Sedation Procedure 1: Sedation/Anesthesia: 12856 Mod Sedation by the same physician; Ea [id number] Minutes Stenting Procedure 1: Cardiovascular Stent Procedures: 05896 Perc transcatheter placement of intracoronary stent(s), with ang PG Care Time/CCT Total # of Minutes Spent Total Time Spent with Patient: Total time spent is greater than 50% in coordination of care (as documented) at patient's floor/unit and/or counseling patient:
[2021-06-24] MEDS ORDERED: Nursing to Pharmacy Communication SCH (19:15)
[2021-06-25] MEDS: INSULIN ASPART 100 UNITS/ML 3 ML PEN SC SCH ×2 (07:41→11:27)
[2021-06-25 07:42] LABS: Hematocrit (blood only) 44.8 % (37-47); Hemoglobin 14.8 g/dL (12.0-16.0); Mean Corpuscular Hemoglobin 29.8 pg (25-34); Mean Corpuscular Volume 90.1 fL (80-100); Mean Platelet Volume 10.1 fL (7.4-10.4); Platelet Count 256 K/uL (130-400); RDW Coefficient of Variation 14.5 % (11.5-14.5); RDW Standard Deviation 48.3 fL (36.4-46.3); Red Blood Count 4.97 M/uL (4.2-5.4); White Blood Count 9.78 K/uL (4.8-10.8)
[2021-06-25] MEDS: ATORVASTATIN 20 MG TAB PO SCH (07:53)
[2021-06-25] MEDS: METOPROLOL SUCC 25MG EXT REL TAB PO SCH (07:53)
[2021-06-25] MEDS: ASPIRIN 81 MG ECTAB PO SCH (07:53)
[2021-06-25 08:11] LABS: Calcium 8.6 mg/dl (8.5-10.1); Creatinine Clr Calc Pharmacy 90.4 ml/min; Est GFR (African American) 112.1 ml/min; Est GFR (Non-African American) 96.7 ml/min; Magnesium 2.1 mg/dl (1.8-2.4)
[2021-06-25] MEDS ORDERED: CLOPIDOGREL BISULFATE 75 MG TAB PO SCH (09:00)
--- NOTE | 2021-06-25 09:05 | Hospitalist Progress Note ---
Date of Service June 25, 2021 Assessment & Plan (1) NSTEMI (non-ST elevated myocardial infarction): (2) Hyperlipidemia: (3) Diabetes mellitus type 2 in nonobese: Plan: This is a 60-year-old female who was transferred from [facility] for cardiac catheterization for non-ST elevated myocardial infarction. 1. Non-ST elevated myocardial infarction: The patient presented to [facility] on Thursday with chest pain and found to have EKG changes, ST depression in the inferolateral leads and high- sensitivity troponin of 45 and peaked at 85. Started on heparin, aspirin, beta ras and transferred here for cardiac catheterization in a.m. Currently resting comfortably, currently asymptomatic. Cardiology consulted. Continue her aspirin, beta ras and low-dose statin. S/p cardiac catheterization yesterday (06/24/2021). Summary: 1. Successful PCI of proximal LAD with single drug-eluting stent (2.75 x 26 mm Macario; postdilated with 3.5 NC). Recommendations: To PCU for continued monitoring Loaded with clopidogrel 600 mg in Steamfitter Continue dual-antiplatelet therapy for at least 1 year Consult cardiac Rehab Currently patient is doing quite well, no chest pain or shortness of breath, no signs of fluid overload Likely to be discharged later today, to follow-up with cardiology and family doctor 2. History of diabetes: Stopped Prandin about 4 years ago because it was causing hypoglycemic episodes. Recent Hb1Ac seemed to be 7; Current Hb1Ac 7.1% insulin sliding scale, follow the blood sugars while inpt 3. Hyperlipidemia: Continue low-dose statin; hopefully, the patient tolerates it. 4. Hypertension: Started on metoprolol. We will monitor the blood pressure. 5. History of vitamin B12 deficiency: We will check laboratories. 6. Tobacco abuse: Needs counseling. She says she is going to quit smoking. 7. Obesity: Needs counseling. DVT prophylaxis: was on IV heparin prior to cardiac cath DISPOSITION: Plan to discharge home likely today Admission and Anticipated Discharge Date Admission Date: June 23, 2021 Subjective Patient seen in follow-up of NSTEMI She was transferred from [facility] for need of cardiac cath she is currently sitting up in the bed, in no acute distress, conversing easily, pleasant in no acute distress Currently denies any chest pain or shortness of breath Denies any dizziness or lightheadedness Review of Systems Constitutional: no fever and no chills Respiratory: no cough and no dyspnea Cardiovascular: no chest pain and no palpitations Gastrointestinal: no abdominal pain, no nausea and no vomiting Physical Exam Physical Exam: GENERAL: obese F, not in acute distress. HEENT: NC/AT, Extraocular muscles intact. No pallor. No icterus. NECK: No JVD, no neck masses. CARDIOVASCULAR: S1 and S2 heard. Regular rate and rhythm. No murmur, no gallop. RESPIRATORY: Normal AP diameter. No accessory muscle use. No wheezing, no crackles. ABDOMEN: Soft, bowel sounds present, nontender, no distention. NEURO: Alert oriented x3, no facial asymmetry, speech fluent, moves extremities EXTREMITIES: No edema, no erythema. Results & Data Results & Data ([facility]) Vital Signs (Past 12 Hours) Vital Signs Temp Pulse Resp BP Pulse Ox 06/25/21 08:28 37.6 C H 78 19 130/73 96 06/25/21 05:10 129/74 06/25/21 03:39 36.4 C L 18 97 06/25/21 00:20 149/80 H 06/25/21 00:15 36.4 C L 73 18 143/100 H 96 Laboratory Results 06/25/21 06/25/21 06/25/21 Range/Units 07:27 06:47 06:47 WBC 9.78 (4.8-10.8) K/uL RBC 4.97 (4.2-5.4) M/uL Hgb 14.8 (12.0-16.0) g/dL Hct 44.8 (37-47) % MCV 90.1 (80-100) fL MCH 29.8 (25-34) pg MCHC 33.0 (32-36) g/dL RDW Std Deviation 48.3 H (36.4-46.3) fL RDW Coeff of Allan 14.5 (11.5-14.5) % Plt Count 256 (130-400) K/uL MPV 10.1 (7.4-10.4) fL Sodium 139 (136-145) mmol/L Potassium 4.0 (3.5-5.1) mmol/L Chloride 109 H (98-107) mmol/L Carbon Dioxide 25 (21-32) mmol/L Anion Gap 5.0 (3-11) BUN 14 (7-18) mg/dl Creatinine 0.66 (0.6-1.2) mg/dl Est Cr Clr Drug Dosing 90.4 ml/min Est GFR ( Amer) 112.1 ml/min Est GFR (Non-Af Amer) 96.7 ml/min BUN/Creatinine Ratio 22.0 H (10-20) Glucose 108 H (70-99) mg/dl POC Glucose 153 H (70-99) mg/dl Calcium 8.6 (8.5-10.1) mg/dl Magnesium 2.1 (1.8-2.4) mg/dl Troponin I (0-0.045) ng/ml 06/24/21 06/24/21 06/24/21 Range/Units 20:55 17:30 16:43 WBC (4.8-10.8) K/uL RBC (4.2-5.4) M/uL Hgb (12.0-16.0) g/dL Hct (37-47) % MCV (80-100) fL MCH (25-34) pg MCHC (32-36) g/dL RDW Std Deviation (36.4-46.3) fL RDW Coeff of Allan (11.5-14.5) % Plt Count (130-400) K/uL MPV (7.4-10.4) fL Sodium (136-145) mmol/L Potassium (3.5-5.1) mmol/L Chloride (98-107) mmol/L Carbon Dioxide (21-32) mmol/L Anion Gap (3-11) BUN (7-18) mg/dl Creatinine (0.6-1.2) mg/dl Est Cr Clr Drug Dosing ml/min Est GFR ( Amer) ml/min Est GFR (Non-Af Amer) ml/min BUN/Creatinine Ratio (10-20) Glucose (70-99) mg/dl POC Glucose 109 H 99 (70-99) mg/dl Calcium (8.5-10.1) mg/dl Magnesium (1.8-2.4) mg/dl Troponin I 0.131 H* (0-0.045) ng/ml 06/24/21 06/24/21 Range/Units 12:02 10:49 WBC (4.8-10.8) K/uL RBC (4.2-5.4) M/uL Hgb (12.0-16.0) g/dL Hct (37-47) % MCV (80-100) fL MCH (25-34) pg MCHC (32-36) g/dL RDW Std Deviation (36.4-46.3) fL RDW Coeff of Allan (11.5-14.5) % Plt Count (130-400) K/uL MPV (7.4-10.4) fL Sodium (136-145) mmol/L Potassium (3.5-5.1) mmol/L Chloride (98-107) mmol/L Carbon Dioxide (21-32) mmol/L Anion Gap (3-11) BUN (7-18) mg/dl Creatinine (0.6-1.2) mg/dl Est Cr Clr Drug Dosing ml/min Est GFR ( Amer) ml/min Est GFR (Non-Af Amer) ml/min BUN/Creatinine Ratio (10-20) Glucose (70-99) mg/dl POC Glucose 88 (70-99) mg/dl Calcium (8.5-10.1) mg/dl Magnesium (1.8-2.4) mg/dl Troponin I 0.129 H* (0-0.045) ng/ml Medications Administered Current Inpatient Medications Acetaminophen (Acetaminophen 325 Mg Tab) 650 mg PO Q4H PRN PRN Reason: Pain or Fever Stop: 07/23/21 18:52 Aspirin (Aspirin 81 Mg Ectab) [address] [facility] Stop: 07/24/21 08:59 Last Admin: 06/25/21 07:53 Dose: 81 mg Documented by: Atorvastatin Calcium (Atorvastatin 20 Mg Tab) [address] [facility] Stop: 07/24/21 08:59 Last Admin: 06/25/21 07:53 Dose: 20 mg Documented by: Clopidogrel Bisulfate (Clopidogrel Bisulfate 75 Mg Tab) [address] [facility] Stop: 07/25/21 08:59 Last Admin: 06/25/21 07:52 Dose: 75 mg Documented by: Dextrose (Dextrose 50% 50 Ml Syringe) 25 - 50 ml IV UD PRN; Protocol PRN Reason: Hypoglycemia Protocol Stop: 07/23/21 20:29 Glucagon (Glucagon For Inj 1 Mg Vial) 1 mg IM UD PRN; Protocol PRN Reason: Hypoglycemia Protocol Stop: 07/23/21 20:29 Glucose (Glucose 40% Gel 15 Gm Tube) 15 - 30 gm PO UD PRN; Protocol PRN Reason: Hypoglycemia Protocol Stop: 07/23/21 20:29 Glucose (Glucose 10 Tabs/Tube) 4 - 8 tabs PO UD PRN; Protocol PRN Reason: Hypoglycemia Protocol Stop: 07/23/21 20:29 Insulin Aspart (Insulin Aspart 100 Units/Ml 3 Ml Pen) 0 units SC ACHS [facility] Stop: 07/24/21 00:00 Last Admin: 06/25/21 07:41 Dose: Not Given Documented by: Metoprolol Succinate (Metoprolol Succ 25mg Ext Rel Tab) 25 mg PO QAM [facility] Stop: 07/24/21 08:59 Last Admin: 06/25/21 07:53 Dose: 25 mg Documented by: Miscellaneous (Carbohydrates For Hypoglycemia ) 15 - 30 gm PO UD PRN PRN Reason: Hypoglycemia Treatment Stop: 07/23/21 20:29 Polyethylene Glycol (Polyethylene (Miralax) 17 Gm Pack) 17 gm PO DAILY PRN PRN Reason: Constipation Stop: 07/23/21 18:52
[2021-06-25 12:41] VITALS: TEMP 97.3; O2SAT 95
--- NOTE | 2021-06-25 13:28 | Discharge Summary ---
Date of Service June 25, 2021 Admission HPI Per Admitting Provider This is a 60-year-old female with past medical history significant for type 2 diabetes, hyperlipidemia, obesity, vitamin B12 deficiency, steatosis of liver, chronic right shoulder pain, degenerative disk disease, tobacco abuse, history of lumbar spinal fusion surgery, who was transferred from [place] for cardiac cath because of non-ST elevated PA. 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 Last Thursday, when she woke up in the evening around 7:00 p.m. and she was talking on the phone to the son around 8:00 p.m., she noticed left-sided chest pain radiating to her left shoulder and arm. It was not getting better when her son told her to go to the ER and she was in [facility] and got admitted for non-ST elevated PA. Her EKG showed ST depression in the inferolateral leads. Her high- sensitivity troponin at presentation was 48 and peaked at 85. She was started on IV heparin, aspirin and metoprolol, and initially, she was placed on nitroglycerin paste. Currently, she is not on any nitroglycerin paste. She says yesterday she had couple of episodes of chest pain, but since today she is having no chest pain. She was somewhat nauseous earlier, but she has no nausea now. When she had chest pain, she had sweating and today she had some sweating, but no chest pain. Currently, resting comfortably and hemodynamically stable. Denies any shortness of breath. She has smoker's cough once in a while. She had a headache earlier that is gone now. No blurred visions, no earache, no runny nose, no sore throat, no nausea. Appetite is okay, no dysphagia, no abdominal pain, normal bowel and bladder movements. Denies any blood in stools or black stools. Denies any hematuria. The patient has diabetes, but she says she could not tolerate metformin in the past and she was on Prandin, but she stopped it 4 years ago because it was causing hypoglycemic episodes. She was on statin; she cannot remember exactly, it could be Lipitor or pravastatin, but it caused very bad leg cramps and she declined statins in the past and now she agrees to try to take Lipitor low dose for 3 times a week. Before all this happened, she was active. Admission Exam Per Admitting Provider GENERAL: The patient is obese, not in acute distress. VITAL SIGNS: Temperature 37, pulse 75, respiratory rate 18, blood pressure 157/94, oxygen 97% on room air. HEENT: Extraocular muscles intact. No pallor. No icterus. NECK: No JVD, no neck masses. CARDIOVASCULAR: S1 and S2 heard. Regular rate and rhythm. No murmur, no gallop. RESPIRATORY SYSTEM: Normal AP diameter. No accessory muscle use. No wheezing, no crackles. ABDOMEN: Soft, bowel sounds present, nontender, no distention. CENTRAL NERVOUS SYSTEM: Cranial nerves II-XII grossly intact, nonfocal. EXTREMITIES: No edema, no erythema. Principal Diagnosis NSTEMI Discharge Exam GENERAL: obese F, not in acute distress. HEENT: NC/AT, Extraocular muscles intact. No pallor. No icterus. NECK: No JVD, no neck masses. CARDIOVASCULAR: S1 and S2 heard. Regular rate and rhythm. No murmur, no ga llop. RESPIRATORY: Normal AP diameter. No accessory muscle use. No wheezing, no crackles. ABDOMEN: Soft, bowel sounds present, nontender, no distention. NEURO: Alert oriented x3, no facial asymmetry, speech fluent, moves extremities EXTREMITIES: No edema, no erythema. Discharge Data Allergies Allergy/AdvReac Type Severity Reaction Status Date / Time No Known Allergies Allergy Unverified 11/17/13 12:56 Consultations 06/23/21 18:53 Consult Cardiology Routine 06/24/21 14:50 Consult Cardiac Rehabilitation Routine Procedures Performed Operation Date: 06/24/21 10:00 Actual Procedures p Cineradiography w/Routine Exam - Gabino Lucia MD p Cath, Left with Cors and Vent - Oleg Gonzalez MD s Drug Eluting Stent SGl Vessel - Gabino Lucia MD s IVUS Coronary Single Vessel - Gabino Lucia MD Ordered Studies 06/24/21 08:55 CL Cath Imgs for PACS use only Stat 06/24/21 15:08 CL IVUS Coronary Single Vessel Routine Hospital Course (1) NSTEMI (non-ST elevated myocardial infarction): (2) Hyperlipidemia: (3) Diabetes mellitus type 2 in nonobese: This is a 60-year-old female who was transferred from [facility] for cardiac catheterization for non-ST elevated myocardial infarction. 1. Non-ST elevated myocardial infarction: The patient presented to [facility] on Thursday with chest pain and found to have EKG changes, ST depression in the inferolateral leads and high-s ensitivity troponin of 45 and peaked at 85. Started on heparin, aspirin, beta ras and transferred here for cardiac catheterization in a.m. Currently resting comfortably, currently asymptomatic. Cardiology consulted. Continue her aspirin, beta ras and low-dose statin. S/p cardiac catheterization yesterday (06/24/2021). Summary: 1. Successful PCI of proximal LAD with single drug-eluting stent (2.75 x 26 mm [place]; postdilated with 3.5 NC). 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 lisinopril 2.5 mg/day Dual antiplatelet therapy - Aspirin and Plavix daily Cardiac rehab to be scheduled on follow-up appointment Patient to follow with [facility] cardiology recommendations 1 to 2 weeks 2. History of diabetes: Stopped Prandin about 4 years ago because it was causing hypoglycemic episodes. Recent Hb1Ac seemed to be 7; Current Hb1Ac 7.1% insulin sliding scale, follow the blood sugars while inpt 3. Hyperlipidemia: Continue low-dose statin; hopefully, the patient tolerates it. 4. Hypertension: Started on metoprolol. We will monitor the blood pressure. 5. History of vitamin B12 deficiency: We will check laboratories. 6. Tobacco abuse: Needs counseling. She says she is going to quit smoking. 7. Obesity: Needs counseling. DVT prophylaxis: was on IV heparin prior to cardiac cath DISPOSITION: Plan to discharge home today Total Time Total Time Spent Total Time Spent (In Minutes): 40 Discharge Plan Discharge Items Patient Disposition: Home - Self-Care Reason For Visit: ACS Discharge Diagnosis: NSTEMI Activity: Per Instructions section Non-emergency contact: Primary Care Provider and Software Integration Developer Call non-emergency contact if: you have any medication questions and your symptoms worsen Follow-up/Referrals: Citlali Mondragon MD [Primary Care Provider] - (Date & Time 06/28/2021 11:00 AM Provider Macho Vincent PA-C Department [place] ) Diet: Carb Consistent or DM2 and Heart Healthy Addtl Attending Provider Instructions: Follow-up with your family physician, the appointment was scheduled for you for June 28, 2021. You will also need to follow-up with cardiology, you will be contacted about the appointment. Make sure to take aspirin and Plavix every day at least for 1 year, you will need to discuss with your deicer finisher or your family doctor before discontinuing this medication. It is recommended that you take rosuvastatin 10 mg daily. Take metoprolol 25 mg daily as prescribed. In addition, take lisinopril 2.5 mg daily. Pending Studies at Discharge: No Stand-Alone Forms: My [facility] [employer], Smoking Cessation Medications and DC Order Prescriptions: New clopidogrel 75 mg Tablet 75 mg PO QAM Qty: 30 RF: 0 aspirin 81 mg Tablet,Delayed Release (Dr/Ec) 81 mg PO QAM Qty: 30 RF: 0 metoprolol succinate 25 mg Tablet Extended Release 24 Hr 25 mg PO QAM Qty: 30 RF: 0 rosuvastatin 10 mg tablet 10 mg PO DAILY Qty: 30 RF: 0 lisinopril 2.5 mg tablet 2.5 mg PO DAILY Qty: 30 RF: 0 Continued CALCIUM CARBONATE-VITAMIN D (CALCIUM + D) 1 TAB tablet DAILY Qty: 0 RF: 0 CLONAZEPAM (KLONOPIN) 0.5 MG tablet 0.5 mg PO Qty: 0 RF: 0 Ergocalciferol (Vitamin D Cap) 50,000 INTERUNIT capsule 50,000 inter.unit PO WK Qty: 0 RF: 0 vitamin b 1 Sublingual Qty: 0 RF: 0 Discontinued Repaglinide (Prandin) 0.5 MG tablet 0.5 mg PO QAM Qty: 0 RF: 0 Discharge Orders: Discharge Order (Routine); Ordered 06/25/21 Ordered By: Nghia Jarrett/Other Patient Handouts: A1C, Managing Type 2 Diabetes, 5 Steps for Eating Healthier, Diabetes: Meal Planning Admission Data Admit Date/Time: 06/23/21 18:53 Attending Provider: Nghia Yañez Admit Provider: Nghia Yañez Primary Care Provider: Citlali Mondragon Other Providers: Ronny Garcia Other Interventions: Discharge Summary Assessment (RN) Last Done: 06/25/21 13:30
[2021-06-25 13:35] VITALS: BP 139/74; PULSE 65
--- NOTE | 2021-06-25 13:48 | Cardiology Progress Note ---
Date of Service June 25, 2021 Assessment & Plan (1) NSTEMI (non-ST elevated myocardial infarction): Plan: 60-year-old female referred for diagnostic cardiac catheterization after presenting with rest chest and left arm pain, elevated troponin consistent with non-ST segment elevation myocardial infarction. Cardiac catheterization demonstrated ulcerated still proximal third left anterior sending stenosis with successful coronary intervention drug-eluting stent inserted. Patient without complication and will follow standard post radial access guidelines Plan: Patient notes prior difficulties with statin intolerance will discharge on rosuvastatin 10 mg/day Continue beta-ras with metoprolol succinate 25 mg/day. Add lisinopril 2.5 mg/day for optimal guideline directed regimen Dual antiplatelet therapy without interruption minimum 6 months Cardiac rehab to be scheduled on follow-up appointment Patient to follow with [facility] cardiology recommendations 1 to 2 weeks May return to work Thursday evening as planned (2) Hyperlipidemia: (3) Diabetes mellitus type 2 in nonobese: Admission and Anticipated Discharge Date Admission Date: June 23, 2021 Subjective Patient was seen and examined, chart, medications, telemetry reviewed. No issues or concerns overnight. No further chest pain or discomfort. Right radial access site healing well. Tolerating current medical therapies. Review of Systems Review of Systems: All systems reviewed & are unremarkable except as noted in Subjective Physical Exam Constitutional: WD/WN, vitals as above Eyes: PERRL, conjunctivae normal, anicteric sclerae ENMT: external ear and nose normal, oropharynx normal Mallampati Class: III Neck: trachea midline, no thyromegaly Respiratory: normal respiratory effort, lungs clear to auscultation Cardiovascular: RRR, no murmur, no edema Rate/Rhythm: regular rate and regular rhythm Heart Sounds: normal S1 and normal S2; no gallop and no murmur Palpation: normal PMI Vessels: normal carotid upstroke and radial pulses present (Access site healing well); no JVD and no carotid bruit Extremities: no edema Gastrointestinal (Abdomen): normal bowel sounds, soft, nontender, no hepatosplenomegaly Musculoskeletal: no cyanosis or clubbing, extremities motor strength 5/5 Skin: no rashes, warm and dry Neurologic: PERRL, EOMI, accommodation nl, no face palsy, no dysarthria Psychiatric: A+Ox3, euthymic affect Results & Data ([facility]) Vital Signs (Past 12 Hours) Vital Signs Temp Pulse Pulse Resp BP BP Pulse Ox 06/25/21 13:30 36.3 C L 65 71 19 141/73 H 139/74 95 06/25/21 12:41 36.3 C L 71 19 141/73 H 95 06/25/21 08:28 37.6 C H 78 19 130/73 96 06/25/21 05:10 129/74 06/25/21 03:39 36.4 C L 18 97 Laboratory Results Laboratory Results - last 24 hr 06/24/21 06/24/21 06/24/21 13:53 14:16 16:43 WBC RBC Hgb Hct MCV MCH MCHC RDW Std Deviation RDW Coeff of Allan Plt Count MPV Activ Coag Time Kaolin 186 H 263 H Sodium Potassium Chloride Carbon Dioxide Anion Gap BUN Creatinine Est Cr Clr Drug Dosing Est GFR ( Amer) Est GFR (Non-Af Amer) BUN/Creatinine Ratio Glucose POC Glucose 99 Calcium Magnesium Troponin I 06/24/21 06/24/21 06/25/21 17:30 20:55 06:47 WBC 9.78 RBC 4.97 Hgb 14.8 Hct 44.8 MCV 90.1 MCH 29.8 MCHC 33.0 RDW Std Deviation 48.3 H RDW Coeff of Allan 14.5 Plt Count 256 MPV 10.1 Activ Coag Time Kaolin Sodium Potassium Chloride Carbon Dioxide Anion Gap BUN Creatinine Est Cr Clr Drug Dosing Est GFR ( Amer) Est GFR (Non-Af Amer) BUN/Creatinine Ratio Glucose POC Glucose 109 H Calcium Magnesium Troponin I 0.131 H* 06/25/21 06/25/21 06/25/21 06:47 07:27 11:17 WBC RBC Hgb Hct MCV MCH MCHC RDW Std Deviation RDW Coeff of Allan Plt Count MPV Activ Coag Time Kaolin Sodium 139 Potassium 4.0 Chloride 109 H Carbon Dioxide 25 Anion Gap 5.0 BUN 14 Creatinine 0.66 Est Cr Clr Drug Dosing 90.4 Est GFR ( Amer) 112.1 Est GFR (Non-Af Amer) 96.7 BUN/Creatinine Ratio 22.0 H Glucose 108 H POC Glucose 153 H 136 H Calcium 8.6 Magnesium 2.1 Troponin I
[2021-06-26] MEDS ORDERED: ROSUVASTATIN CALCIUM 10 MG TAB PO SCH (09:00)
[2021-06-26] MEDS ORDERED: lisinopril 2.5 MG TAB PO SCH (09:00)
== END 2021-06-25 15:14 | disposition home or self-care (01) | DRG 247 ==
LOC: 2E 18:45